=== PATIENT | male | born 1980 | race Caucasian/White ===

== ENCOUNTER 2020-08-20 14:01 | Emergency (ER) | payer BC ==
[~2020-08-20] VITALS: Ht 182.9 cm; Wt 98.9 kg
[2020-08-20 14:18] VITALS: BP_SYST 141
[2020-08-20] MEDS ORDERED: LIDOCAINE/EPI 2% 1:100000 20 ML VIAL INJ ONE (14:45)
[2020-08-20] MEDS ORDERED: KETOROLAC TROMETHAMINE 60 MG/2 ML VIAL IM ONE (14:45)
[2020-08-20] MEDS ORDERED: HYDROcodone/ACETAMIN 5-325 MG TAB (NORCO/ VICODIN) PO ONE (16:45)
[2020-08-20] MEDS ORDERED: cephALEXin 500 MG CAPSULE PO ONE (16:45)
[2020-08-20] MEDS ORDERED: IBUP-1970 PO (16:52)
[2020-08-20] MEDS ORDERED: CEPH250C PO (16:52)
[2020-08-20 17:01] VITALS: BP_SYST 141
== END 2020-08-20 17:00 | disposition home or self-care (01) ==
LOC: SED 14:01
DX: K61.0 Anal abscess (principal); F32.9 Major depressive disorder, single episode, unspecified; F12.90 Cannabis use, unspecified, uncomplicated; F17.290 Nicotine dependence, other tobacco product, uncomplicated; Z79.899 Other long term (current) drug therapy; Z71.6 Tobacco abuse counseling
CPT/HCPCS: 10060; 96372; 99283; J1885